=== PATIENT | male | born 1990 | race African-American/Black ===

== ENCOUNTER 2020-10-22 20:17 | Emergency (ER) | payer OTHER ==
[~2020-10-22 20:17] MED LIST: ENDOCET 5-3251 EACH PO; NAPROXEN500 MG PO
[2020-10-22 20:40] LABS: BASOPHIL 0.1 % (0-2); EOSINOPHIL 0.9 % (0-5); HCT 48.3 % (42.0-52.0); HGB 15.8 g/dl (13.2-18.0); LYMPHOCYTE 28.5 % (15-48); MCH 31.6 pg (25.0-31.0); MCHC 32.7 g/dL (32.0-36.0); MCV 96.6 fL (78.0-100.0); MONOCYTE 7.3 % (0-12); MPV 9.3 fL (6.0-9.5); NEUTROPHIL 62.9 % (41-80); NRBC 0; PLT 355 K/uL (150-400); RDW 12.5 % (11.5-14.0); WBC 13.6 K/uL (4.0-10.5)
[2020-10-22 20:55] LABS: BILIRUBIN NEGATIVE (NEGATIVE); BLOOD NEGATIVE Ery/uL (NEGATIVE); CLARITY CLEAR (CLEAR); COLOR YELLOW (YELLOW); GLUCOSE (U) NORMAL (NORMAL); LEUKOCYTES NEGATIVE Leu/uL (NEGATIVE); NITRITE NEGATIVE (NEGATIVE); PROTEIN NEGATIVE (NEGATIVE); SPECIFIC GRAVITY 1.025 (1.001-1.030); UROBILINOGEN 0.2 mg/dL (0.2-1.0)
[2020-10-22 20:56] LABS: ACETAMINOPHEN (TYLENOL) < 2.0 ug/mL (10.0-30.0); ALBUMIN 3.9 g/dL (3.4-5.0); ALKALINE PHOSHATASE 44 U/L (46-116); ALT 46 U/L (16-63); AST 27 U/L (15-37); BILIRUBIN - TOTAL 0.6 mg/dL (0.2-1.0); BUN 15 mg/dL (7-18); BUN/CREAT RATIO (CALC) 12.7 RATIO; CHLORIDE 104 mmol/L (98-107); CO2 (BICARBONATE) 29 mmol/L (21-32); CREATININE 1.18 mg/dL (0.67-1.17); GLOBULIN (CALCULATION) 3.5 g/dL; GLUCOSE 157 mg/dL (74-106); POTASSIUM 3.5 mmol/L (3.5-5.1); TOTAL PROTEIN 7.4 g/dL (6.4-8.2)
[2020-10-22 20:59] LABS: ECSTASY (MDMA) NEGATIVE (NEGATIVE); MARIJUANA (THC) POSITIVE (NEGATIVE); METHADONE NEGATIVE (NEGATIVE)
[2020-10-22 21:00] LABS: AMPHETAMINES POSITIVE (NEGATIVE); BARBITURATES NEGATIVE (NEGATIVE); OPIATES POSITIVE (NEGATIVE); OXYCODONE NEGATIVE (NEGATIVE)
== END 2020-10-22 23:07 | disposition home or self-care (01) ==
LOC: FER 20:17
PROVIDERS: Emergency Medicine Emergency Medical Services
DX: T40.601A Poisoning by unspecified narcotics, accidental (unintentional), initial encounter (principal); F17.210 Nicotine dependence, cigarettes, uncomplicated
CPT/HCPCS: 36415; 71045; 80053; 80305; 81003; 83605; 85025; 92950; 93005; 96372; G0480; J7030

== ENCOUNTER 2021-05-04 17:29 | Emergency (ER) | payer OTHER ==
[2021-05-04 18:49] LABS: BASOPHIL 0.2 % (0-2); EOSINOPHIL 1.8 % (0-5); HCT 46.2 % (42.0-52.0); HGB 15.8 g/dl (13.2-18.0); LYMPHOCYTE 11.3 % (15-48); MCH 30.8 pg (25.0-31.0); MCHC 34.2 g/dL (32.0-36.0); MCV 90.1 fL (78.0-100.0); MONOCYTE 5.4 % (0-12); MPV 9.3 fL (6.0-9.5); NEUTROPHIL 81.1 % (41-80); NRBC 0; PLT 299 K/uL (150-400); RBC 5.13 M/uL (4.70-6.00); WBC 12.7 K/uL (4.0-10.5)
[2021-05-04 19:07] LABS: ALBUMIN 4.1 g/dL (3.4-5.0); BILIRUBIN - TOTAL 0.7 mg/dL (0.2-1.0); BUN/CREAT RATIO (CALC) 10.4 RATIO; CREATININE 1.25 mg/dL (0.67-1.17); GLOBULIN (CALCULATION) 3.8 g/dL; POTASSIUM 3.8 mmol/L (3.5-5.1); TOTAL PROTEIN 7.9 g/dL (6.4-8.2)
[2021-05-04 21:11] LABS: BILIRUBIN 1+ mg/dL (NEGATIVE); BLOOD NEGATIVE Ery/uL (NEGATIVE); CLARITY CLEAR (CLEAR); COLOR YELLOW (YELLOW); GLUCOSE (U) NORMAL (NORMAL); LEUKOCYTES NEGATIVE Leu/uL (NEGATIVE); NITRITE NEGATIVE (NEGATIVE); PROTEIN 1+ mg/dL (NEGATIVE); SPECIFIC GRAVITY >=1.030 (1.001-1.030)
[2021-05-04 21:17] LABS: BACTERIA TRACE; MUCOUS MODERATE; URINARY WBC RARE
[2021-05-05] MEDS ORDERED: CIPRO500 MG PO (00:32)
[2021-05-05] MEDS ORDERED: METRONIDAZOLE500 MG PO (00:32)
[2021-05-05] MEDS ORDERED: ZOFRAN4 M1 PO (00:32)
== END 2021-05-05 00:50 | disposition home or self-care (01) ==
LOC: FER 17:29
PROVIDERS: Emergency Medicine
DX: R10.31 Right lower quadrant pain (principal); R10.32 Left lower quadrant pain; F17.210 Nicotine dependence, cigarettes, uncomplicated; Z88.0 Allergy status to penicillin
CPT/HCPCS: 36415; 80053; 81001; 82150; 83690; 85025; J7030; Q9967